=== PATIENT | male | born 1995 | race Caucasian/White ===

== ENCOUNTER 2018-02-15 00:33 | Emergency (ER) | payer OTHER ==
--- NOTE | 2018-02-15 00:36 | ER Report ---
History and Physical Time Seen By MD: 00:35 HPI/ROS CHIEF COMPLAINT: Acute psychosis HISTORY OF PRESENT ILLNESS: 22-year-old male found down in the street acutely agitated with abrasions on his back from twisting around with loud outbursts of anger and uncontrollable speech. Patient appears to be on some sort of mind altering substance. Patient admits to none. Patient uncooperative cantankerous , agitated sudden bursts of anger and thrashing about. REVIEW OF SYSTEMS: Unable to obtain due to poor cooperation Allergies: Coded Allergies: No Known Drug Allergies (Unverified , 02/15/18) Home Meds No Active Prescriptions or Reported Meds Reviewed Nurses Notes: Yes Old Medical Records Reviewed: Yes Hx Smoking: No Smoking Status: Never Smoker Constitutional Vital Sign - Last 24 Hours 02/15/18 02/15/18 00:37 03:38 Temp 98.3 98.7 Pulse 143 104 Resp 24 12 B/P (MAP) 129/85 133/69 (90) Pulse Ox 94 96 O2 Delivery Room Air Room Air Physical Exam Vital signs stable, tachycardic to 143 General Appearance: The patient is alert, has no immediate need for airway protection and no current signs of toxicity. Hypervigilant, agitated, sudden outbursts HEENT: Pupils equal and round no injection. TMs normal, Respiratory: Chest is non tender, lungs are clear to auscultation. Cardiac: regular rate and rhythm Gastrointestinal: Abdomen is soft and non tender, no masses, bowel sounds normal. Musculoskeletal: Neck: Neck is supple and non tender. No lymphadenopathy, no meningismus Extremities have full range of motion and are non tender. Skin: No rashes or lesions. DIFFERENTIAL DIAGNOSIS: After history and physical exam differential diagnosis was considered for acute psychosis, substance abuse, substance withdrawal, alcohol withdrawal,altered mental status including but not limited to hypoglycemia, infectious process, electrolyte abnormality, head injury and intoxicants. Medical Decision Making Data Points Result Diagram: 02/15/18 0140 02/15/18 014 Laboratory Hematology Test 02/15/18 01:40 02/15/18 02:38 Red Blood Count 5.56 M/uL (4.00-5.60) Mean Corpuscular Volume 84.2 fL (80.0-96.0) Mean Corpuscular Hemoglobin 28.7 pg (26.0-33.0) Mean Corpuscular Hemoglobin Concent 34.1 g/dL (32.0-36.0) Red Cell Distribution Width 12.4 % (11.5-14.5) Mean Platelet Volume 9.7 fL (7.2-11.1) Neutrophils (%) (Auto) 87.5 % (39.4-72.5) Lymphocytes (%) (Auto) 8.3 % (17.6-49.6) Monocytes (%) (Auto) 3.8 % (4.1-12.4) Eosinophils (%) (Auto) 0.1 % (0.4-6.7) Basophils (%) (Auto) 0.3 % (0.3-1.4) Nucleated RBC Relative Count (auto) 0.0 /100WBC Neutrophils # (Auto) 10.2 K/uL (2.0-7.4) Lymphocytes # (Auto) 1.0 K/uL (1.3-3.6) Monocytes # (Auto) 0.5 K/uL (0.3-1.0) Eosinophils # (Auto) 0.0 K/uL (0.0-0.5) Basophils # (Auto) 0.0 K/uL (0.0-0.1) Nucleated RBC Absolute Count (auto) 0.00 K/uL Sodium Level 142 mmol/L (137-145) Potassium Level 3.4 mmol/L (3.5-5.0) Chloride Level 107 mmol/L (98-107) Carbon Dioxide Level 20 mmol/L (22-30) Blood Urea Nitrogen 17 mg/dl (9-21) Creatinine 0.90 mg/dl (0.66-1.25) Glomerular Filtration Rate Calc > 60.0 Random Glucose 152 mg/dl (75-110) Calcium Level 9.4 mg/dl (8.4-10.2) Magnesium Level 1.8 mg/dl (1.7-2.2) Total Bilirubin 0.5 mg/dl (0.2-1.3) Aspartate Amino Transf (AST/SGOT) 27 U/L (0-35) Alanine Aminotransferase (ALT/SGPT) 22 U/L (0-56) Alkaline Phosphatase 77 U/L (0-126) Total Protein 7.4 g/dl (6.3-8.2) Albumin 4.6 g/dl (3.5-5.0) Thyroid Stimulating Hormone (TSH) 2.23 uIU/ml (0.46-4.68) Salicylates Level < 10 mg/L Salicylate Last Dose Date unk Acetaminophen Level < 10 ug/ml Serum Alcohol < 10 mg/dl Urine Color Yellow Urine Clarity Clear Urine pH 5.0 pH (4.8-9.5) Urine Specific [place] 1.017 Urine Protein 30 mg/dL (NEGATIVE) Urine Glucose (UA) Negative mg/dL (NEGATIVE) Urine Ketones Negative mg/dL (NEGATIVE) Urine Blood Negative (NEGATIVE) Urine Nitrite Negative (NEGATIVE) Urine Bilirubin Negative (NEGATIVE) Urine Urobilinogen Negative mg/dL (0.2-1.9) Urine Leukocyte Esterase Negative (NEGATIVE) Urine RBC 1 /HPF (0-2/HPF) Urine WBC 1 /HPF (0-5/HPF) Urine Squamous Epithelial Cells None /LPF (</=FEW) Urine Bacteria Negative /HPF (NONE-FEW) Urine Hyaline Casts Moderate /LPF (NONE-FEW) Urine Granular Casts Few /LPF (NONE) Urine Mucus Few /HPF (NONE-FEW) Urine Opiates Screen Negative Urine Barbiturates Screen Negative Ur Tricyclic Antidepressants Screen Negative Urine Phencyclidine Screen Negative Urine Amphetamines Screen Negative Urine Benzodiazepines Screen Negative Urine Cocaine Screen Negative Urine Cannabinoids Screen Positive Chemistry Test 02/15/18 01:40 02/15/18 02:38 White Blood Count 11.7 k/uL (4.5-11.0) Red Blood Count 5.56 M/uL (4.00-5.60) Hemoglobin 15.9 g/dL (14.0-18.0) Hematocrit 46.8 % (42.0-52.0) Mean Corpuscular Volume 84.2 fL (80.0-96.0) Mean Corpuscular Hemoglobin 28.7 pg (26.0-33.0) Mean Corpuscular Hemoglobin Concent 34.1 g/dL (32.0-36.0) Red Cell Distribution Width 12.4 % (11.5-14.5) Platelet Count 193 K/uL (150-450) Mean Platelet Volume 9.7 fL (7.2-11.1) Neutrophils (%) (Auto) 87.5 % (39.4-72.5) Lymphocytes (%) (Auto) 8.3 % (17.6-49.6) Monocytes (%) (Auto) 3.8 % (4.1-12.4) Eosinophils (%) (Auto) 0.1 % (0.4-6.7) Basophils (%) (Auto) 0.3 % (0.3-1.4) Nucleated RBC Relative Count (auto) 0.0 /100WBC Neutrophils # (Auto) 10.2 K/uL (2.0-7.4) Lymphocytes # (Auto) 1.0 K/uL (1.3-3.6) Monocytes # (Auto) 0.5 K/uL (0.3-1.0) Eosinophils # (Auto) 0.0 K/uL (0.0-0.5) Basophils # (Auto) 0.0 K/uL (0.0-0.1) Nucleated RBC Absolute Count (auto) 0.00 K/uL Glomerular Filtration Rate Calc > 60.0 Calcium Level 9.4 mg/dl (8.4-10.2) Magnesium Level 1.8 mg/dl (1.7-2.2) Total Bilirubin 0.5 mg/dl (0.2-1.3) Aspartate Amino Transf (AST/SGOT) 27 U/L (0-35) Alanine Aminotransferase (ALT/SGPT) 22 U/L (0-56) Alkaline Phosphatase 77 U/L (0-126) Total Protein 7.4 g/dl (6.3-8.2) Albumin 4.6 g/dl (3.5-5.0) Thyroid Stimulating Hormone (TSH) 2.23 uIU/ml (0.46-4.68) Salicylates Level < 10 mg/L Salicylate Last Dose Date unk Acetaminophen Level < 10 ug/ml Serum Alcohol < 10 mg/dl Urine Color Yellow Urine Clarity Clear Urine pH 5.0 pH (4.8-9.5) Urine Specific [place] 1.017 Urine Protein 30 mg/dL (NEGATIVE) Urine Glucose (UA) Negative mg/dL (NEGATIVE) Urine Ketones Negative mg/dL (NEGATIVE) Urine Blood Negative (NEGATIVE) Urine Nitrite Negative (NEGATIVE) Urine Bilirubin Negative (NEGATIVE) Urine Urobilinogen Negative mg/dL (0.2-1.9) Urine Leukocyte Esterase Negative (NEGATIVE) Urine RBC 1 /HPF (0-2/HPF) Urine WBC 1 /HPF (0-5/HPF) Urine Squamous Epithelial Cells None /LPF (</=FEW) Urine Bacteria Negative /HPF (NONE-FEW) Urine Hyaline Casts Moderate /LPF (NONE-FEW) Urine Granular Casts Few /LPF (NONE) Urine Mucus Few /HPF (NONE-FEW) Urine Opiates Screen Negative Urine Barbiturates Screen Negative Ur Tricyclic Antidepressants Screen Negative Urine Phencyclidine Screen Negative Urine Amphetamines Screen Negative Urine Benzodiazepines Screen Negative Urine Cocaine Screen Negative Urine Cannabinoids Screen Positive Toxicology Test 02/15/18 01:40 02/15/18 02:38 Salicylates Level < 10 mg/L Salicylate Last Dose Date unk Acetaminophen Level < 10 ug/ml Serum Alcohol < 10 mg/dl Urine Opiates Screen Negative Urine Barbiturates Screen Negative Ur Tricyclic Antidepressants Screen Negative Urine Phencyclidine Screen Negative Urine Amphetamines Screen Negative Urine Benzodiazepines Screen Negative Urine Cocaine Screen Negative Urine Cannabinoids Screen Positive Urinalysis Test 02/15/18 02:38 Urine Color Yellow Urine Clarity Clear Urine pH 5.0 pH (4.8-9.5) Urine Specific [place] 1.017 Urine Protein 30 mg/dL (NEGATIVE) Urine Glucose (UA) Negative mg/dL (NEGATIVE) Urine Ketones Negative mg/dL (NEGATIVE) Urine Blood Negative (NEGATIVE) Urine Nitrite Negative (NEGATIVE) Urine Bilirubin Negative (NEGATIVE) Urine Urobilinogen Negative mg/dL (0.2-1.9) Urine Leukocyte Esterase Negative (NEGATIVE) Urine RBC 1 /HPF (0-2/HPF) Urine WBC 1 /HPF (0-5/HPF) Urine Squamous Epithelial Cells None /LPF (</=FEW) Urine Bacteria Negative /HPF (NONE-FEW) Urine Hyaline Casts Moderate /LPF (NONE-FEW) Urine Granular Casts Few /LPF (NONE) Urine Mucus Few /HPF (NONE-FEW) EKG/Imaging EKG Interpretation 12 lead EK Rhythm: normal sinus rhythm with sinus arrhythmia Bowman: normal QRS: normal ST segments: normal, no evidence of ischemia or dysrhythmia Imaging Results: CT scan of the head was obtained. The results of the study are no acute findings. The study was read by the radiologist. I viewed the images myself on the PACS system. ED Course/Re-evaluation ED Course Patient was admitted to an examination room. H&P was done. The differential diagnoses was considered. Patient with acute psychosis. Patient's uncooperative. He's emergently detained by police officer booking is gravely disabled. Patient has numerous abrasions on his back from rolling around on the street. Patient was found just wearing underwear. He is brought in by police in handcuffs grossly agitated, fighting with the officers caking about. Patient would not cooperate for physical exam and history. Patient has random outbursts of violent speech and profanity as well as kicking about. Patient was medicated for his own safety with Zyprexa 10 mg IM, Ativan 2 mg IM and Benadryl 50 noted grams IM. Diagnostic study was undertaken to determine the etiology of his acute psychosis. Patient was unable to cooperate for a appropriate tidal 25 evaluation. 02/15/2018 3:28:25 am case discussed with Aaliyah Mckeon nurse practitioner on [facility] service who accepts the patient for admission for further observation Decision to Disposition Date: Feb 15, 2018 Decision to Disposition Time: 03:28 Depart Departure Latest Vital Signs Vital Signs Date Time Temp Pulse Resp B/P (MAP) Pulse Ox O2 Delivery O2 Flow Rate FiO2 02/15/18 03:38 98.7 104 12 133/69 (90) 96 Room Air Impression: Primary Impression: Acute psychosis Additional Impressions: Cannabis abuse Abrasion of back Condition: Improved Disposition: XFER TO [facility] Referrals: NANCY LOZADA MD (PCP) New Scripts No Active Prescriptions or Reported Meds Problem Qualifiers Additional Impressions: Abrasion of back Encounter type: initial encounter Laterality: unspecified laterality Qualified Codes: S20.419A - Abrasion of unspecified back wall of thorax, initial encounter KRISTEN RICHARDS DO Feb 15, 2018 00:36
[2018-02-15] MEDS ORDERED: WATER STERILE 10 ML VIAL IM ONLY ONE (00:45)
[2018-02-15] MEDS ORDERED: diphenhydrAMINE 50 MG/ML VIAL IM ONE (00:45)
[2018-02-15] MEDS ORDERED: OLANZapine 10 MG VIAL IM ONLY ONE (00:45)
[2018-02-15] MEDS ORDERED: LORazepam 2 MG/ML VIAL IM ONE (00:45)
[2018-02-15] MEDS ORDERED: DIPHTH/TETANUS/ACEL. PERTUSSIS IM ONLY ONE (01:20)
[2018-02-15 01:48] LABS: PLATELET COUNT, AUTOMATED 193 K/uL (150-450)
--- NOTE | 2018-02-15 02:33 | EKG ---
FACILITY: [facility] - [place] PATIENT NAME: MIRTHA MOTA : [id number] MR: [id number] V: [id number] EXAM DATE: ORDERING PHYSICIAN: KRISTEN RICHARDS TECHNOLOGIST: Test Reason : Blood Pressure : / mmHG Vent. Rate : 094 BPM Atrial Rate : 094 BPM P-R Int : 130 ms QRS Dur : 090 ms QT Int : 346 ms P-R-T Axes : 069 064 050 degrees QTc Int : 432 ms Normal sinus rhythm with sinus arrhythmia Normal ECG No previous ECGs available Confirmed by CONCEPCION SHORE ([id number]) on 02/15/2018 5:47:53 AM Referred By: Confirmed By:CONCEPCION SHORE
--- NOTE | 2018-02-15 02:44 | RADIOLOGY IMAGING REPORT ---
FACILITY: [facility] - [place] PATIENT NAME: Mio Aly : 1995 MR: [id number] V: [id number] EXAM DATE: ORDERING PHYSICIAN: KRISTEN RICHARDS TECHNOLOGIST: Location: [facility] [place] Patient: Mio Aly : 1995 Visit/Account:[id number] Date of Sevice: 02/15/2018 HEAD W/O CONTRAST HISTORY: Altered mental status. Acute psychosis. COMPARISON: None. TECHNIQUE: Axial images were obtained from the skull base to the vertex without contrast. Sagittal an d coronal reformats were performed. One of the following dose optimization techniques was utilized in the performance of this exam: Autom ated exposure control; adjustment of the mA and/or kV according to the patient's size; or use of an i terative reconstruction technique. Specific details can be referenced in the facility's radiology CT exam operational policy. CONTRAST: None. FINDINGS: Brain: No intracranial hemorrhage, mass or edema. Ventricles and sulci: Sulci are normal. Ventricular size and configuration is normal. Osseous structures: Intact. Paranasal sinuses and mastoids: There are mucus retention pseudocysts within the right maxillary sinu s. Mastoids are clear. Orbits and soft tissues: Normal. IMPRESSION: 1. No acute intracranial abnormality. Report Dictated By: Shaila Dudley at 02/15/2018 2:36 AM Report E-Signed By: Shaila Dudley at 02/15/2018 2:40 AM WSN:[id number]
[2018-02-15 03:38] VITALS: BP 133/69
== END 2018-02-15 03:46 ==
LOC: ER 00:43
DX: F23 Brief psychotic disorder (principal); S20.419A Abrasion of unspecified back wall of thorax, initial encounter; F12.10 Cannabis abuse, uncomplicated; I49.9 Cardiac arrhythmia, unspecified
CPT/HCPCS: 36415; 70450; 80305; 80320; 80329; 81001; 83735; 84443; 85025; 90471; 90715; 93005; 96372; 99284; A4216; J1200; J2060; J3490; 82040; 82247; 82310; 82374; 82435; 82565; 82947; 84075; 84132; 84155; 84295; 84450; 84460; 84520

== ENCOUNTER 2018-02-15 03:34 | Inpatient (IN) | payer OTHER ==
[2018-02-15] MEDS ORDERED: diphenhydrAMINE 25 MG CAP PO PRN (04:20)
[2018-02-15] MEDS ORDERED: OLANZapine 10 MG VIAL IM ONLY PRN (04:20)
[2018-02-15] MEDS ORDERED: LORazepam 1 MG TAB PO PRN (04:20)
[2018-02-15] MEDS ORDERED: LORazepam 2 MG/ML VIAL IM PRN (04:20)
[2018-02-15] MEDS ORDERED: diphenhydrAMINE 50 MG/ML VIAL IM PRN (04:20)
[2018-02-15] MEDS ORDERED: OLANZapine 5 MG TAB PO PRN (04:20)
[2018-02-15 11:07] VITALS: BP 116/66
--- NOTE | 2018-02-16 04:36 | HISTORY AND PHYSICAL ---
DATE OF ADMISSION: February 15, 2018 DATE OF INTERVIEW: February 15, 2018, 0950 DATE OF DISCHARGE: February 15, 2018 PRESENTING PROBLEM/CHIEF COMPLAINT "Apparently I was asleep in the street. The last thing I remember is hanging out with my friends playing virtual realty. I don't remember leaving the house. " HISTORY OF PRESENT ILLNESS Patient was brought to the emergency room by the [place] [employer] after he was found in the street wearing only his underwear. He was displaying paranoid behavior, making nonsensical statements, and he was emergency detained by the police at that time. On the morning of interview, several hours after he was admitted, patient is seen. he is polite. He is pleasant. He is cooperative. He is oriented times three. He reports that his thinking is clear. He has no recollection of the events that were described to him, which occurred early in the morning. He remembers being at his friend's house. He does remember that he had worked his job at [employer] on Friday night, where he works the overnight. He did not sleep on Friday. He did use marijuana from a batch of marijuana that he had smoked before, so this was not new. He went to hang out with his friends in the evening, and he remembers playing virtual reality on a Playstation with his friends. He does not recall leaving the house or anything that happened afterward. He denies that this has ever happened in the past. He denies any history of hallucinations. He does report that he has issues with anxiety that have been there since high school. In fact , he stopped going to school at the [employer] due to anxiety. This is not currently being treated. He does report feeling depressed at times. Again, this is not treated. He denies any suicidal ideation. He denies homicidal ideation. He denies any other drug use recently. He denies any alcohol us at all. He denies caffeine abuse. He does not take any current medications. We did make contact with patient's father this morning, who reports that nothing like this has ever happened in the past with his son. He denies any known family history of mental illness other than client's older brother, who has autism and depression. Patient also made contact with one of his friends that he was with last night, who denies that patient used any drugs while he was there last night, and friend does not know what happened after patient left the house with a friend. All that he knows is patient got out of the friend's car because he was feeling paranoid last night. MENTAL HEALTH HISTORY Patient denies any history of previous hospitalizations, denies any mental health treatment history. No prior medications. Denies any suicide attempts. Denies any history of self harm. FAMILY PSYCHIATRIC HISTORY One brother with autism and depression. PAST MEDICAL HISTORY Denied. SOCIAL HISTORY Patient is from [place], [place]. He graduated high school from [employer]. He is single. He has no children. He is not in a current relationship. He lives in [place] with his parents and his two brothers. His brothers are age 19 and 20 years old. Patient was a student at the [employer]. However, he reports that he stopped going to school in August of this year due to anxiety. He was studying computer engineering. He is currently working at [employer], and he does work the overnight shift from 11 to 7 in the morning. TRAUMA HISTORY Denied LEGAL HISTORY Denied. SUBSTANCE ABUSE HISTORY Alcohol: He reports never using. Illicit drug use: He reports using marijuana a few times a week. He believes that he uses maybe an eighth a week since age 16 years old. He has tried mushrooms once one and a half years ago. He tried Ambien once two years ago. He denies any other drug use or over-the- counter drug abuse. Tobacco: He has never used. Caffeine: He reports using one to two cups of coffee a day. He drinks one or two sodas every other day. He drinks one energy drink once a week or less. PHYSICAL EXAMINATION This is a thin 22-year-old male who appears his stated age. Vital signs include temperature 98.1, pulse 64, blood pressure 116/66, oxygen saturation 97 % on room air. LABORATORY DATA Laboratory data completed in the emergency room: White blood cell count was at 11.7 and high, neutrophils at 87.5 and high, lymphocyte 8.3 and low, monocytes 3.8 and low, eosinophils 0.1 and low, neutrophils 10.2 and high, lymphocytes 1.0 and low. Chemistries showed potassium slightly low at 3.4, CO2 at 20 and low, random glucose at 152 and high. Negative for salicylates, acetaminophen or alcohol. Urine drug screen positive for cannabinoids. MENTAL STATUS EXAMINATION GENERAL APPEARANCE, BEHAVIOR AND ATTITUDE: Patient is dressed in hospital scrubs. He is alert. He is oriented. He is making good eye contact. No abnormal psychomotor activity is noted. SPEECH: Clear and spontaneous and of normal rate, rhythm and volume. MOOD: Described as Frustrated because I don't remember what happened. AFFECT: Neutral, appropriate to situation. No tearfulness. THOUGHT PROCESSES: Logical and goal-directed, no loose associations or flight of ideas. THOUGHT CONTENT: He denies any suicidal ideation, denies any homicidal ideation , denies auditory, visual or other hallucinations. No delusions are elicited. COGNITION: He is alert and oriented to person, place, day, date and situation. ESTIMATED INTELLIGENCE: Average to above average, based upon interview. MEMORY: Immediate, recent and remote estimated grossly intact. INSIGHT AND JUDGMENT: Good. He understands that he does at times have problems with anxiety. 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 He does not understand what happened last night, because he does not have recollection. ASSESSMENT This is a 22-year-old male admitted to the unit under an emergency intermediate after the police department brought him in in a psychotic stated with suspected drug-induced behavior. Patient does admit to using marijuana earlier in the day , however, he has no recollection of what happened in the night to bring him to the state that he was. He does not recall being paranoid. He does not recall making the statements that he made. He is clear this morning, and is denying any suicidal, homicidal ideation, denies any hallucinations, and no delusions are elicited. HOSPITAL COURSE Patient was admitted to the unit around 4 a.m. He was seen for interview around 9:50 a.m. He did receive p.r.n. medication in the emergency room prior to coming to the unit, including Zyprexa, Ativan and Benadryl due to combative behavior. He was absolutely cooperative throughout his time on the unit. FINAL DIAGNOSES PER DSM-V Unspecified anxiety disorder. Rule out drug-induced psychotic episode, which is resolved. CONDITION OF PATIENT ON DISCHARGE Considered stable and a minimal risk to himself and others. Appropriate for outpatient management. DISPOSITION Patient is discharged to home in the care of his parents. It is recommended that he follow up with psychiatric provider of choice for therapy, due to his report of anxiety. Patient is discharged on no medications. The 24-hour crisis line number is provided should symptoms or problems return. The risks, benefits and alternatives of the above discharge plan were discussed with client. Informed consent was given to proceed with the above discharge plan by this competent patient. PATRICA
== END 2018-02-15 12:15 | disposition home or self-care (01) | DRG 880 ==
LOC: BHS 03:34
PROVIDERS: ADMIT Registered Nurse Psychiatric/Mental Health, Adult; ATTEND Registered Nurse Psychiatric/Mental Health, Adult
DX: F41.9 Anxiety disorder, unspecified (principal); F12.988 Cannabis use, unspecified with other cannabis-induced disorder; Z81.0 Family history of intellectual disabilities